=== PATIENT | male | born 1970 ===

== ENCOUNTER → 2021-03-26 | Outpatient (CLI) | payer BC ==
--- NOTE | 2021-03-26 11:16 | Diagnostic Imaging Report ---
EXAMINATION: Renal Doppler. INDICATION: Hypertension. TECHNIQUE/COMPARISON: Spectral and color-flow imaging of both kidneys was performed. There are no prior exams available for comparison. FINDINGS: The right kidney measures 10.4 x 5.3 x 6.3 cm while the left kidney is estimated at 10.4 x 5.0 x 5.1 cm. There is no evidence for a solid renal mass or hydronephrosis of either kidney. The renal cortices are normal in thickness and echogenicity. There is no sign of chronic medical renal disease. Both renal arteries were identified. The renal artery to aortic ratios failed to show any sign of a hemodynamically significant stenosis of either renal artery. The arterial resistive indices of both renal arteries are also within normal limits. The bladder was not imaged during the course of this exam. IMPRESSION: 1. There is no evidence for a solid mass or for an acute abnormality of either kidney. 2. There is no sign of chronic medical renal disease. 3. There is no hemodynamically significant stenosis of either renal artery. Dictated by: Dictated on workstation # [id number]
== END ==
LOC: RAD 09:15
PROVIDERS: ATTEND Nurse Practitioner Family
DX: I10 Essential (primary) hypertension (principal)
CPT/HCPCS: 76770; 93975